=== PATIENT | male | born 1965 | race Caucasian/White ===

== ENCOUNTER → 2016-07-20 | Outpatient (CLI) | payer OTHER ==
[~2016-07-20] MED LIST: ALBU1.25 IH; DIAZ-345 PO; NAPR-243 PO; TRM50T PO
--- NOTE | 2016-07-20 12:44 | Diagnostic Imaging Report ---
Left shoulder at 10:29 a.m. INDICATION: Injury. Three views were obtained. FINDINGS: There is a broad lucency extending through the superior half of the body of the scapula. This finding may have been present on the prior chest exams of 08/09/2014 and 08/23/2011. Consequently, I feel it is unlikely that this is related to an acute scapular fracture. If further imaging is desired, however, then CT would be recommended. No other fracture or acute bony abnormality is noted. There is mild degenerative disease involving the glenohumeral joint and moderate degenerative disease of the acromioclavicular joint. The soft tissues are unremarkable. IMPRESSION: 1. The lucency extending through the superior half of the scapula may be a sequela of prior trauma as opposed to an acute injury. Recommendations as above. 2. There is no acute bony abnormality noted otherwise. 3. These results were discussed with Olivia Fierro APRN. Dictated by: Dictated on workstation # [id number]
--- NOTE | 2016-07-20 13:40 | Diagnostic Imaging Report ---
Left ribs. INDICATION: Injury. FINDINGS: Three views were obtained. There is no evidence for a displaced rib fracture. There is no sign of an injury to the underlying left lung either. Specifically, there is no pneumothorax. IMPRESSION: 1. There is no evidence for an acute bony abnormality. 2. These results were discussed with Olivia Fierro APRN. Dictated by: Dictated on workstation # [id number]
== END ==
LOC: RAD 09:53
PROVIDERS: ATTEND Nurse Practitioner Family
DX: M25.512 Pain in left shoulder (principal)
CPT/HCPCS: 71100; 73030

== ENCOUNTER 2016-09-11 12:25 | Emergency (ER) | payer OTHER ==
[~2016-09-11] VITALS: Ht 177.8 cm; Wt 127.9 kg
[~2016-09-11 12:25] MED LIST changes: -ALBU1.25 IH
--- OUTSIDE RECORDS SUMMARY | 2016-09-11 12:32 | XMS REPORT | Continuity of Care Document ---
Author Author [facility] Organization [facility] Address Unknown Phone Unavailable Allergies Active Description Code Type Severity Reaction Onset Reported/Identified Relationship to Patient Clinical Status Yes aspirin [id number] Drug Allergy Unknown N/A 08/23/2011 Yes Penicillins [id number] Drug Allergy Unknown N/A 08/23/2011 Medications Problems Date Dx Coded Attending Type Code Diagnosis Diagnosed By 03/07/2009 Ot 724.2 03/07/2009 Ot 724.4 03/07/2009 Ot V57.1 08/23/2011 Ot 845.00 08/23/2011 Ot 922.1 08/23/2011 Ot 924.10 08/23/2011 Ot 959.11 08/23/2011 Ot E000.8 08/23/2011 Ot E849.8 08/23/2011 Ot E928.9 12/10/2011 Ot 729.5 12/10/2011 Ot V57.1 08/12/2014 Ot 724.2 08/12/2014 Ot 722.52 08/12/2014 Ot 729.5 08/12/2014 STEFFI SKINNER DO Ot 278.00 08/12/2014 STEFFI SKINNER DO Ot 493.90 08/12/2014 STEFFI SKINNRE DO Ot 786.09 08/12/2014 STEFFI SKINNER DO Ot 278.00 08/12/2014 STEFFI SKINNER DO Ot 493.90 08/12/2014 STEFFI SKINNER DO Ot 786.09 08/23/2014 STEFFI SKINNER DO Ot 278.00 08/23/2014 STEFFI SKINNER DO Ot 493.90 08/23/2014 STEFFI SKINNER DO Ot 786.09 11/06/2014 STEFFI SKINNER DO Ot 786.09 12/30/2015 STEFFI SKINNER DO Ot 278.00 OBESITY, NOS 12/30/2015 STEFFI SKINNER DO Ot 493.90 ASTHMA, UNSPECIFIED 12/30/2015 STEFFI SKINNER DO Ot 786.09 RESPIRATORY ABNORM NEC 02/13/2016 STEFFI SKINNER DO Ot 278.00 OBESITY, NOS 02/13/2016 STEFFI SKINNER DO Ot 493.90 ASTHMA, UNSPECIFIED 02/13/2016 STEFFI SKINNER DO Ot 786.09 RESPIRATORY ABNORM NEC 04/26/2016 PAVITHRA UNDERWOOD MD Ot M25.561 PAIN IN RIGHT KNEE 04/26/2016 PAVITHRA UNDERWOOD MD Ot M54.5 LOW BACK PAIN 06/30/2016 PAVITHRA UNDERWOOD MD Ot M25.561 PAIN IN RIGHT KNEE 06/30/2016 PAVITHRA UNDERWOOD MD Ot M54.5 LOW BACK PAIN 07/20/2016 STEFFI SKINNER DO Ot 278.00 OBESITY, NOS 07/20/2016 STEFFI SKINNER DO Ot 493.90 ASTHMA, UNSPECIFIED 07/20/2016 STEFFI SKINNER DO Ot 786.09 RESPIRATORY ABNORM NEC 07/20/2016 PAVITHRA UNDERWOOD MD Ot M25.561 PAIN IN RIGHT KNEE 07/20/2016 PAVITHRA UNDERWOOD MD Ot M54.5 LOW BACK PAIN 07/21/2016 BRENDA CARY APRN Ot M25.512 PAIN IN LEFT SHOULDER 07/26/2016 BRENDA CARY APRN Ot M25.512 PAIN IN LEFT SHOULDER 09/01/2016 BRENDA CARY APRN Ot M25.512 PAIN IN LEFT SHOULDER Procedures Results Encounters ACCT No. Visit Date/Time Discharge Status Pt. Type Provider Facility Loc./Unit Complaint [id number] 10/29/2014 15:27:00 2014 23:59:59 CLS Outpatient STEFFI SKINNER DO [facility] SLEEP [id number] 08/09/2014 14:54:00 2014 23:59:59 CLS Outpatient STEFFI SKINNER DO [facility] RT ASTHMA,DYSPNEA [id number] 07/20/2016 09:53:00 ACT Outpatient BRENDA CARY APRN [facility] RAD L SCAPULA PAIN,PREVC SCAPULA FRACTURE [id number] 04/24/2016 12:25:00 ACT Outpatient YASMINE MONREAL, PAVITHRA Wong [facility] NINO R KNEE PAIN,LBP [id number] 12/10/2011 15:37:00 Document Registration [id number] 08/23/2011 11:39:00 Document Registration [id number] 12/23/2009 16:33:00 Document Registration [id number] 03/26/2009 08:39:00 Document Registration [id number] 03/17/2009 08:09:00 Document Registration [id number] 02/17/2009 08:49:00 Document Registration
--- NOTE | 2016-09-11 13:02 | ED Lower Extremity ---
General Chief Complaint: Lower Extremity Stated Complaint: R LEG PAIN, SWELLING Source: patient Exam Limitations: no limitations History of Present Illness Time seen by provider: 13:00 Initial Comments To ER with right knee pain and swelling. This began about 5 weeks ago when he fell on it. He followed up with Dr. Davis who put him on a Medrol Dosepak and meloxicam (finished medrol dosepak 2 weeks ago). This reduced the swelling. About a week ago the swelling returned to the knee. He has pain and tenderness down the lower extremity to the ankle. He denies fevers or chills. He is ambulatory Onset: just prior to arrival Severity: moderate Pain/Injury Location: right knee Method of Injury: fell Modifying Factors: Worse With Movement Allergies and Home Medications Allergies Coded Allergies: Penicillins (Verified Allergy, Unknown, 09/11/16) aspirin (Verified Allergy, Unknown, 09/11/16) hydrocodone (Verified Allergy, Unknown, 09/11/16) ketorolac (Verified Allergy, Unknown, 09/11/16) meperidine (Verified Allergy, Unknown, 09/11/16) Home Medications Albuterol Sulfate 1.25 Mg/3 Ml Vial.neb 1.25 MG IH (Reported) Constitutional: see HPI EENTM: see HPI Respiratory: no symptoms reported Cardiovascular: no symptoms reported Genitourinary: no symptoms reported Musculoskeletal: see HPI joint pain joint swelling Skin: no symptoms reported Psychiatric/Neurological: No Symptoms Reported Past Vqjbhhr-Qbnqgt-Fehnby Hx Patient Social History Alcohol Use: Regular Use Recreational Drug Use: No Smoking Status: Never a Smoker 2nd Hand Smoke Exposure: No Recent Foreign Travel: No Contact w/Someone Who Travel: No Recent Hopitalizations: No Surgeries HX Surgeries: Yes (r/l knee, back) Surgeries: Adenoidectomy, Orthopedic, Tonsillectomy Respiratory Hx Respiratory Disorders: Yes Respiratory Disorders: Asthma Cardiovascular Hx Cardiac Disorders: No Neurological Hx Neurological Disorders: No Reproductive System Hx Reproductive Disorders: No Genitourinary Hx Genitourinary Disorders: No Gastrointestinal Hx Gastrointestinal Disorders: No Musculoskeletal Hx Musculoskeletal Disorders: Yes Musculoskeletal Disorders: Arthritis Endocrine Hx Endocrine Disorders: No HEENT HX ENT Disorders: No Cancer Hx Cancer: No Psychosocial Hx Psychiatric Problems: No Integumentary HX Skin/Integumentary Disorder: No Blood Transfusions Hx Blood Disorders: No Physical Exam Vital Signs Vital Sign - Last 12Hours 09/11/16 12:53 Temp 98.0 Pulse 63 Resp 18 B/P 149/107 Pulse Ox 98 O2 Delivery Room Air Capillary Refill : General Appearance: WD/WN no apparent distress HEENT: PERRL/EOMI normal ENT inspection Neck: non-tender full range of motion Respiratory: no respiratory distress no accessory muscle use Gastrointestinal: non tender soft Hips: bilateral hip non-tender, bilateral hip normal inspection, bilateral hip normal range of motion Legs: bilateral leg non-tender, bilateral leg normal inspection, bilateral leg normal range of motion Knees: right knee pain, right knee soft tissue tenderness, right knee swelling Ankles: bilateral ankle non-tender, bilateral ankle normal inspection, bilateral ankle normal range of motion Feet: bilateral foot non-tender, bilateral foot normal inspection, bilateral foot normal range of motion Neurologic/Psychiatric: alert normal mood/affect oriented x 3 Skin: normal color warm/dry Comments I'm not able to appreciate any swelling of the lower extremity except for directly around the knee. Progress/Results/Core Measures Results/Orders My Orders Orders-FOZIA PENNY APRN Us Venous Lower Ext Rt (09/11/16 12:59) Knee, Right, 3 Views (09/11/16 12:59) Vital Signs/I&O Vital Sign - Last 12Hours 09/11/16 12:53 Temp 98.0 Pulse 63 Resp 18 B/P 149/107 Pulse Ox 98 O2 Delivery Room Air Diagnostic Imaging Diagonstic Imaging: Xray Comments NAME: DISHA CORREA [facility] REC#: [id number] PT STATUS: REG ER : 1965 PHYSICIAN: FOZIA PENNY APRN ADMIT DATE: 09/11/16/ER Draft Date of Exam:09/11/16 KNEE, RIGHT, 3 VIEWS INDICATION: Right knee pain. COMPARISON: None. FINDINGS: Three views of the right knee demonstrate moderate degenerative joint disease most pronounced involving the medial compartment and patellofemoral joint. There is a small suprapatellar joint effusion. There is no osseous lesion, fracture or dislocation. IMPRESSION: Small joint effusion with underlying degenerative joint disease. Dictated on workstation # [id number] Dict: 09/11/16 1318 Trans: 09/11/16 1321 [facility] [id number] Interpreted by: MASSIMO CHRISTOPHER Electronically signed by: NAME: DISHA CORREA [facility] REC#: [id number] PT STATUS: REG ER : 1965 PHYSICIAN: FOZIA PENNY APRN ADMIT DATE: 09/11/16/ER Draft Date of Exam:09/11/16 US VENOUS LOWER EXT RT PROCEDURE: US right lower extremity venous. TECHNIQUE: Multiple real-time grayscale images were obtained over the right lower extremity in various projections. Additional duplex Doppler and color Doppler images were also obtained. INDICATION: Leg pain and swelling. There are no prior studies available for comparison. FINDINGS: The previous left lower extremity venous Doppler exam of 12/23/09 fail to show any sign of thrombosis of the left lower extremity. There is generally good blood flow and compressibility at all levels of the deep venous system. There is no sign of a deep venous thrombosis. IMPRESSION: There is no evidence for deep venous stenosis of the right lower extremity. Dictated on workstation # [id number] Dict: 09/11/16 1407 Trans: 09/11/16 1410 [id number] Interpreted by: GALE NAVAS MD Electronically signed by: Departure Impression Impression: Primary Impression: Arthritis Additional Impression: Joint effusion Disposition: 01 HOME, SELF-CARE Condition: Stable Departure-Patient Inst. Decision time for Depature: 14:13 Referrals: PAVITHRA UNDERWOOD MD (PCP/Family) Primary Care Physician Patient Instructions: Arthritis and Exercise, Osteoarthritis (DC) Add. Discharge Instructions: 1. Follow-up with Dr. Underwood this week 3. Discuss with Dr. Underwood an MRI for further evaluation 4. Return to ER for any fevers, redness or other concerns All discharge instructions reviewed with patient and/or family. Voiced understanding. Copy Copies To 1: PAVITHRA UNDERWOOD MD, PETER J APRN Sep 11, 2016 13:02
[2016-09-11] MEDS ORDERED: ALBU1.25 IH (13:12)
--- NOTE | 2016-09-11 13:22 | Diagnostic Imaging Report ---
INDICATION: Right knee pain. COMPARISON: None. FINDINGS: Three views of the right knee demonstrate moderate degenerative joint disease most pronounced involving the medial compartment and patellofemoral joint. There is a small suprapatellar joint effusion. There is no osseous lesion, fracture or dislocation. IMPRESSION: Small joint effusion with underlying degenerative joint disease. Dictated by: Dictated on workstation # [id number]
--- NOTE | 2016-09-11 14:11 | Diagnostic Imaging Report ---
PROCEDURE: US right lower extremity venous. TECHNIQUE: Multiple real-time grayscale images were obtained over the right lower extremity in various projections. Additional duplex Doppler and color Doppler images were also obtained. INDICATION: Leg pain and swelling. There are no prior studies available for comparison. FINDINGS: The previous left lower extremity venous Doppler exam of 12/23/09 fail to show any sign of thrombosis of the left lower extremity. There is generally good blood flow and compressibility at all levels of the deep venous system. There is no sign of a deep venous thrombosis. IMPRESSION: There is no evidence for deep venous stenosis of the right lower extremity. Dictated by: Dictated on workstation # [id number]
[2016-09-11 14:32] VITALS: BP 140/102
== END 2016-09-11 14:32 | disposition home or self-care (01) ==
LOC: EDUNIT# 12:25 → ER 12:28
DX: M25.461 Effusion, right knee (principal); M17.11 Unilateral primary osteoarthritis, right knee
CPT/HCPCS: 73562; 99283

== ENCOUNTER → 2017-01-04 | Outpatient (CLI) | payer OTHER ==
[~2017-01-04] MED LIST changes: +ALBU1.25 IH
== END ==
LOC: RAD 09:21
PROVIDERS: ATTEND Orthopaedic Surgery
DX: M54.5 Low back pain (principal)

== ENCOUNTER 2017-06-17 05:34 | Outpatient (CLI) | payer OTHER ==
[~2017-06-17] VITALS: Ht 177.8 cm; Wt 152.0 kg
[2017-06-17] MEDS ORDERED: DIAZ5TAB3 PO (11:26)
[2017-06-17] MEDS ORDERED: RT-ALBUINH IH (11:26)
[2017-06-17] MEDS ORDERED: LISI-596 PO (11:26)
== END 2017-06-17 12:58 ==
LOC: PREOP 05:34
PROVIDERS: ATTEND Surgery
DX: Z01.818 Encounter for other preprocedural examination (principal); Z12.11 Encounter for screening for malignant neoplasm of colon

== ENCOUNTER 2017-06-24 07:00 | Day surgery (SDC) | payer OTHER ==
[~2017-06-24] VITALS: Ht 177.8 cm; Wt 152.0 kg
[~2017-06-24 07:00] MED LIST changes: +DIAZ5TAB3 PO; +LISI-596 PO; +RT-ALBUINH IH
--- OUTSIDE RECORDS SUMMARY | 2017-06-24 07:03 | XMS REPORT | Continuity of Care Document ---
Author Author [facility] Organization [facility] Address Unknown Phone Unavailable Allergies Active Description Code Type Severity Reaction Onset Reported/Identified Relationship to Patient Clinical Status Yes aspirin [id number] Drug Allergy Unknown N/A 09/11/2016 Yes hydrocodone [id number] Drug Allergy Unknown N/A 09/11/2016 Yes ketorolac [id number] Drug Allergy Unknown N/A 09/11/2016 Yes meperidine [id number] Drug Allergy Unknown N/A 09/11/2016 Yes Penicillins [id number] Drug Allergy Unknown N/A 09/11/2016 Medications There is no data. Problems Date Dx Coded Attending Type Code [...] 493.90 08/12/2014 STEFFI SKINNER DO Ot 786.09 08/12/2014 STEFFI SKINNER DO [...] DO Ot 786.09 RESPIRATORY ABNORM NEC 04/26/2016 YASMINE MONREAL, PAVITHRA Wong Ot M25.561 PAIN IN RIGHT KNEE 04/26/2016 YASMINE MONREAL, PAVITHRA Wong Ot M54.5 LOW BACK PAIN 06/30/2016 PAVITHRA [...] M54.5 LOW BACK PAIN 07/21/2016 BRENDA CARY PROOF CLERK Ot M25.512 PAIN IN LEFT SHOULDER 07/26/2016 BRENDA CARY PROOF CLERK Ot M25.512 PAIN IN LEFT SHOULDER 09/01/2016 BRENDA CARY PROOF CLERK Ot M25.512 PAIN IN LEFT SHOULDER 09/11/2016 FOZIA PENNY APRN Ot M17.11 UNILATERAL PRIMARY OSTEOARTHRITIS, RIGHT 09/11/2016 FOZIA PENNY APRN Ot M25.461 EFFUSION, RIGHT KNEE 09/11/2016 FOZIA PENNY APRN Ot M25.561 PAIN IN RIGHT KNEE 09/14/2016 FOZIA PENNY APRN Ot M17.11 UNILATERAL PRIMARY OSTEOARTHRITIS, RIGHT 09/14/2016 FOZIA PENNY APRN Ot M25.461 EFFUSION, RIGHT KNEE 09/14/2016 FOZIA PENNY APRN Ot M25.561 PAIN IN RIGHT KNEE 11/12/2016 BRENDA CARY APRN Ot M25.512 PAIN IN LEFT SHOULDER 11/15/2016 PAVITHRA UNDERWOOD MD Ot M25.561 PAIN IN RIGHT KNEE 11/15/2016 PAVITHRA UNDREWOOD MD Ot M54.5 LOW BACK PAIN 11/15/2016 BRENDA CARY APRN Ot M25.512 PAIN IN LEFT SHOULDER 12/29/2016 PAVITHRA UNDERWOOD MD Ot M25.561 PAIN IN RIGHT KNEE 12/29/2016 PAVITHRA UNDERWOOD MD Ot M54.5 LOW BACK PAIN 12/29/2016 BRENDA CARY APRN Ot M25.512 PAIN IN LEFT SHOULDER 12/31/2016 PAVITHRA UNDERWOOD MD Ot M25.561 PAIN IN RIGHT KNEE 12/31/2016 PAVITHRA UNDERWOOD MD Ot M54.5 LOW BACK PAIN 12/31/2016 BRENDA CARY APRN Ot M25.512 PAIN IN LEFT SHOULDER 01/06/2017 NICOLAS MURRY DO Ot M54.5 LOW BACK PAIN 01/06/2017 STEFFI SKINNER DO Ot 278.00 OBESITY, NOS 01/06/2017 STEFFI SKINNER DO Ot 493.90 ASTHMA, UNSPECIFIED 01/06/2017 STEFFI SKINNER DO Ot 786.09 RESPIRATORY ABNORM NEC 01/06/2017 PAVITHRA UNDERWOOD MD Ot M25.561 PAIN IN RIGHT KNEE 01/06/2017 PAVITHRA UNDERWOOD MD Ot M54.5 LOW BACK PAIN 01/06/2017 BRENDA CARY APRN Ot M25.512 PAIN IN LEFT SHOULDER 01/06/2017 NICOLAS MURRY DO Ot M54.5 LOW BACK PAIN Procedures There is no data. Results There is no data. Encounters ACCT No. Visit Date/Time Discharge Status Pt. Type Provider Facility Loc./Unit Complaint [id number] 01/04/2017 09:21:00 01/04/2017 23:59:59 CLS Outpatient NICOLAS MURRY DO [facility] RAD BACK PAIN [id number] 09/11/2016 12:28:00 09/11/2016 14:32:00 DIS Emergency FZOIA PENNY J PROOF CLERK [facility] ER R LEG PAIN, SWELLING [id number] 07/20/2016 09:53:00 07/20/2016 23:59:59 CLS Outpatient BRENDA CARY PROOF CLERK [facility] RAD L SCAPULA PAIN,PREVC SCAPULA FRACTURE [id number] 04/24/2016 12:25:00 04/24/2016 23:59:59 CLS Outpatient PAVITHRA UNDERWOOD MD [facility] RAD R KNEE PAIN,LBP [id number] 10/29/2014 15:27:00 10/29/2014 23:59:59 CLS Outpatient STEFFI SKINNER DO [facility] SLEEP [id number] 08/09/2014 14:54:00 08/09/2014 23:59:59 CLS Outpatient STEFFI SKINNER DO [facility] RT ASTHMA,DYSPNEA [id number] 06/24/2017 14:00:00 PEN Preadmit FABRIZIO CABRERA DO [facility] ENDO SCREENING [id number] 12/10/2011 15:37:00 Document Registration [id number] 08/23/2011 11:39:00 Document Registration [id number] 12/23/2009 16:33:00 Document Registration [id number] 03/26/2009 08:39:00 Document Registration [id number] 03/17/2009 08:09:00 Document Registration [id number] 02/17/2009 08:49:00 Document Registration
[2017-06-24] MEDS ORDERED: LACTATED RINGERS 1,000 ML IV ONE (07:07)
[2017-06-24] MEDS ORDERED: LACTATED RINGERS 1,000 ML IV STA (07:23)
[2017-06-24] MEDS ORDERED: FAMOTIDINE 20MG/2ML IV (PEPCID) ONE (07:24)
[2017-06-24] MEDS ORDERED: MIDAZOLAM 5 MG/5 ML (VERSED) VIAL ONE (07:25)
[2017-06-24] MEDS ORDERED: PROPOFOL INJECTION 50 ML IV ONE (07:25)
[2017-06-24 07:36] VITALS: BP 131/72
[2017-06-24] MEDS ORDERED: LIDOCAINE PF 1% 5 ML (XYLOCAINE) AMP ONE (07:41)
--- NOTE | 2017-06-24 08:45 | Progress Note-Post Operative ---
Post-Operative Progess Note Surgeon (s)/Pediatric Geneticist (s) Surgeon FABRIZIO CABRERA DO Pediatric Geneticist: na Pre-Operative Diagnosis screening colonoscopy Post-Operative Diagnosis descending colon polyp Procedure & Operative Findings Date of Procedure 06/24/17 Procedure Performed/Findings colonoscopy c hot bx polypectomy Anesthesia Type per armature winder automotive Estimated Blood Loss Estimated blood loss (mL): none Specimens/Packing Specimens Removed descending colon polyp FABRIZIO CABRERA DO Jun 24, 2017 08:45
--- NOTE | 2017-06-24 08:50 | Discharge Inst-Simple/Standard ---
Discharge Inst-Standard Patient Instructions/Follow Up Plan of Care/Instructions/FU: Repeat colonoscopy in 5 years any problems before then be seen at that time. Call the office in 1 week to discuss pathology results. Activity as Tolerated: Yes Discharge Diet: Regular Diet FABRIZIO CABRERA DO Jun 24, 2017 08:50
[2017-06-24 08:55] VITALS: BP 123/84
[2017-06-24 09:20] VITALS: BP 124/80
[2017-06-24 09:24] VITALS: BP 124/80
--- NOTE | 2017-06-24 18:02 | OPERATIVE REPORT ---
DATE OF SERVICE: 06/24/2017 PREOPERATIVE DIAGNOSIS: Screening colonoscopy. POSTOPERATIVE DIAGNOSIS: Descending colon polyp. PROCEDURE: Colonoscopy with hot biopsy polypectomy. SURGEON: Fabrizio Christianson DO. ANESTHESIA: Per CIVIL ENGINEER HELPER. ESTIMATED BLOOD LOSS: None. COMPLICATIONS: None. INDICATIONS: The patient is a 52-year-old male with need for screening colonoscopy. He understands risks and benefits of procedure and wished to proceed with procedure. Consent was signed in the chart. DESCRIPTION OF PROCEDURE: The patient was taken to the endoscopy suite, placed in left lateral recumbent position. Timeout was performed. Digital rectal exam was performed. There were no palpable polyps, masses or ulcerations. Scope was inserted in the rectum and advanced all the way to the cecum with minimal difficulty. Prep was adequate with irrigation and suction. There were no polyps, masses or ulcerations within the cecum. There were no polyps, masses or ulcerations in the ascending and transverse colon. Within the descending colon, a small polyp was present, which hot biopsy polypectomy was performed. Scope was continued slowly retracted back into the sigmoid colon and into the rectum where it was also retroflexed noting no other pathology. Scope was returned to its normal position, slowly withdrawn until completely removed. The patient tolerated procedure well without any complications. He was taken to the recovery room in stable condition. RECOMMENDATIONS: The patient to follow up on pathology. He will need a repeat colonoscopy in 5 years to reevaluate. If he has any problems prior to that, he should be reevaluated at that time. Job ID: [id number] DocumentID: [id number] Dictated Date: 06/24/2017 08:57:33 Grocery Buyer Date: 06/24/2017 18:01:33 Dictated By: FABRIZIO CHRISTIANSON DO
== END 2017-06-24 09:25 | disposition home or self-care (01) ==
LOC: ENDO 07:00
PROVIDERS: ATTEND Surgery
DX: Z12.11 Encounter for screening for malignant neoplasm of colon (principal); D12.4 Benign neoplasm of descending colon; I10 Essential (primary) hypertension; J45.909 Unspecified asthma, uncomplicated; M19.91 Primary osteoarthritis, unspecified site; E66.9 Obesity, unspecified; Z68.41 Body mass index [BMI] 40.0-44.9, adult; Z79.899 Other long term (current) drug therapy

== ENCOUNTER → 2018-10-30 | Outpatient (CLI) | payer OTHER | LOC: ORTHO 08:43 | PROVIDERS: ATTEND Orthopaedic Surgery | DX: M17.0 Bilateral primary osteoarthritis of knee (principal); J45.909 Unspecified asthma, uncomplicated; E66.9 Obesity, unspecified; Z68.42 Body mass index [BMI] 45.0-49.9, adult; Z79.899 Other long term (current) drug therapy | CPT/HCPCS: 99203 ==

== ENCOUNTER → 2019-01-31 | Outpatient (CLI) | payer OTHER | LOC: ORTHO 09:05 | PROVIDERS: ATTEND Orthopaedic Surgery | DX: M17.0 Bilateral primary osteoarthritis of knee (principal); J45.909 Unspecified asthma, uncomplicated; E66.9 Obesity, unspecified; Z68.42 Body mass index [BMI] 45.0-49.9, adult; Z79.899 Other long term (current) drug therapy ==

== ENCOUNTER → 2019-05-03 | Outpatient (CLI) | payer OTHER | LOC: ORTHO 08:42 | PROVIDERS: ATTEND Orthopaedic Surgery | DX: M17.11 Unilateral primary osteoarthritis, right knee (principal); Z79.51 Long term (current) use of inhaled steroids ==

== ENCOUNTER → 2019-06-06 | Outpatient (CLI) | payer OTHER ==
[~2019-06-06] VITALS: Ht 178 cm; Wt 145.0 kg
[~2019-06-06] MED LIST changes: +CATHETER FLUSH 10 ML SYR IV PRN; +REGADENOSON 0.4 MG/5 ML SYR (LEXISCAN) IV ONE
[2019-06-06 09:36] VITALS: BP 131/85
--- NOTE | 2019-06-06 23:13 | STRESS TEST ---
DATE OF SERVICE: 06/06/2019 LEXISCAN MYOVIEW STRESS TEST REPORT REFERRING PHYSICIAN: Laurie Bangura MD Baseline heart rate is 68, baseline blood pressure 143/85. Baseline EKG is sinus rhythm with no ischemic changes. In summary, the patient was injected with 10.18 mCi of technetium-99 Myoview and the resting images were obtained. Then, the patient received 0.4 mg of Lexiscan followed by 29.9 mCi of technetium-99 Myoview. Throughout the test, there were no EKG changes. The resting and stress images were reviewed and compared in the short axis, horizontal long axis, and vertical long axis views. Review of the images showed good radiotracer uptake with no ischemia or infarction. SSS is 2, SDS 2, TID value 1.03. On the gated images, the left ventricle appeared to be normal size with normal contractility. Calculated ejection fraction 53%. CONCLUSION: 1. The patient tolerated Lexiscan well. 2. Diaphragmatic attenuation with no significant ischemia or infarction on SPECT images. 3. Normal left ventricular size with normal contractility. Calculated ejection fraction 53%. Job ID: [id number] DocumentID: [id number] Dictated Date: 06/06/2019 17:02:36 Director Of Global Marketing Date: 06/06/2019 23:12:22 Dictated By: EDIE MIRANDA MD
== END ==
LOC: CARD 07:19
PROVIDERS: ATTEND Internal Medicine Cardiovascular Disease
DX: J45.909 Unspecified asthma, uncomplicated (principal); E78.2 Mixed hyperlipidemia; I10 Essential (primary) hypertension
CPT/HCPCS: 78452; 93017

== ENCOUNTER → 2019-10-11 | Outpatient (CLI) | payer OTHER ==
[~2019-10-11] MED LIST changes: -CATHETER FLUSH 10 ML SYR IV PRN; -DIAZ5TAB3 PO; +DIAZ5TAB49 PO; -REGADENOSON 0.4 MG/5 ML SYR (LEXISCAN) IV ONE
== END ==
LOC: ORTHO 08:38
PROVIDERS: ATTEND Orthopaedic Surgery
DX: M17.0 Bilateral primary osteoarthritis of knee (principal); J45.909 Unspecified asthma, uncomplicated; E78.2 Mixed hyperlipidemia; R09.02 Hypoxemia; E66.9 Obesity, unspecified

== ENCOUNTER → 2019-11-27 | Outpatient (CLI) | payer OTHER | LOC: ORTHO 13:23 | PROVIDERS: ATTEND Orthopaedic Surgery | DX: M17.11 Unilateral primary osteoarthritis, right knee (principal) ==

== ENCOUNTER → 2020-01-14 | Outpatient (CLI) | payer OTHER | LOC: ORTHO 09:43 | PROVIDERS: ATTEND Orthopaedic Surgery | DX: M17.11 Unilateral primary osteoarthritis, right knee (principal) ==

== ENCOUNTER → 2020-04-21 | Outpatient (CLI) | payer OTHER | LOC: ORTHO 09:49 | PROVIDERS: ATTEND Orthopaedic Surgery | DX: M17.11 Unilateral primary osteoarthritis, right knee (principal) ==

== ENCOUNTER → 2020-07-28 | Outpatient (CLI) | payer OTHER | LOC: ORTHO 08:39 | PROVIDERS: ATTEND Orthopaedic Surgery | DX: M17.11 Unilateral primary osteoarthritis, right knee (principal); E78.2 Mixed hyperlipidemia; I10 Essential (primary) hypertension; J45.909 Unspecified asthma, uncomplicated ==

== ENCOUNTER → 2021-03-25 | Outpatient (CLI) | payer OTHER | LOC: ORTHO 08:48 | PROVIDERS: ATTEND Orthopaedic Surgery | DX: M17.12 Unilateral primary osteoarthritis, left knee (principal); I10 Essential (primary) hypertension; J45.909 Unspecified asthma, uncomplicated; E78.2 Mixed hyperlipidemia | CPT/HCPCS: 20610; G0463 ==

== ENCOUNTER 2021-12-23 05:59 | Outpatient (CLI) | payer OTHER ==
[~2021-12-23] VITALS: Ht 177.8 cm; Wt 153.3 kg
== END 2021-12-23 12:06 | disposition home or self-care (01) ==
LOC: PREOP 05:59
PROVIDERS: ATTEND Surgery
DX: Z01.818 Encounter for other preprocedural examination (principal)

== ENCOUNTER 2022-01-07 06:48 | Day surgery (SDC) | payer OTHER ==
[~2022-01-07] VITALS: Ht 177.8 cm; Wt 153.3 kg
[~2022-01-07 06:48] MED LIST changes: +ACET-2267 PO; +CETI10TA49 PO; +DIPH25CA79 PO; +DULA4.5P SQ; +FAMO20TA5 PO; +FLUT1DIS26 IH; +GABA-486 PO; +LISI10TA25 PO; +MELA1TAB15 PO; +METF-399 PO; +MONT10TA21 PO; +ROPI1TAB PO; +SERT100T PO
[2022-01-07] MEDS ORDERED: LACTATED RINGERS 1,000 ML IV STA (06:58)
[2022-01-07] MEDS ORDERED: HURRICAINE EXT TUBE (BENZOCAINE) XX PRN (07:00)
[2022-01-07 07:07] VITALS: BP 108/75
[2022-01-07] MEDS ORDERED: PROPOFOL INJECTION 50 ML IV ONE (07:49)
[2022-01-07] MEDS ORDERED: MIDAZOLAM 2 MG/2 ML (VERSED) VIAL ONE (07:49)
--- NOTE | 2022-01-07 08:11 | Progress Note-Pre Operative ---
Pre-Operative Progress Note H&P Reviewed The H&P was reviewed, patient examined and no changes noted. Date Seen by Provider: Jan 07, 2022 Time Seen by Provider: 08:10 Date H&P Reviewed: Jan 07, 2022 Time H&P Reviewed: 08:11 Pre-Operative Diagnosis: gerd hx polyps FABRIZIO CABRERA DO Jan 07, 2022 08:11
--- NOTE | 2022-01-07 08:44 | Progress Note-Post Operative ---
Post-Operative Progess Note Surgeon (s)/Technology Coordinator (s) Surgeon FABRIZIO CABRERA DO Technology Coordinator: na Pre-Operative Diagnosis gerd hx polyps Post-Operative Diagnosis slight gastritis, small hiatal hernia, normal colon Procedure & Operative Findings Date of Procedure 01/07/22 Procedure Performed/Findings egd c biopsies, colonoscopy Anesthesia Type per mda Estimated Blood Loss Estimated blood loss (mL): none Specimens/Packing Specimens Removed antrum, body, ge FABRIZIO CABRERA DO Jan 07, 2022 08:44
[2022-01-07] MEDS ORDERED: PANT40TA2 PO (08:46)
--- NOTE | 2022-01-07 08:47 | Discharge Inst-Simple/Standard ---
Discharge Inst-Standard Discharge Medications New, Converted or Re-Newed RX: Transmitted to Pharmacy Patient Instructions/Follow Up Plan of Care/Instructions/FU: 2 weeks Meghan Arrange sleep study. Activity as Tolerated: Yes Discharge Diet: Regular Diet FABRIZIO CABRERA DO Jan 07, 2022 08:47
[2022-01-07 08:51] VITALS: BP 125/63
[2022-01-07 09:05] VITALS: BP 137/71
[2022-01-07 09:36] VITALS: BP 135/69
--- NOTE | 2022-01-07 09:42 | Anesthesia-General Post-Op ---
MAC Patient Condition Mental Status/LOC: Same as Preop Cardiovascular: Satisfactory Nausea/Vomiting: Absent Respiratory: Satisfactory Pain: Controlled Complications: Absent Post Op Complications Complications None Follow Up Care/Instructions Patient Instructions None needed. Anesthesiology Discharge Order Discharge Order Patient is doing well, no complaints, stable vital signs, no apparent adverse anesthesia problems. No complications reported per nursing. CANDI FATIMA DO Jan 07, 2022 09:41
--- NOTE | 2022-01-07 15:13 | OPERATIVE REPORT ---
DATE OF SERVICE: 01/07/2022 PREOPERATIVE DIAGNOSES: Gastroesophageal reflux disease, history of polyps. POSTOPERATIVE DIAGNOSES: Small hiatal hernia, slight gastritis, normal colon. PROCEDURE: EGD with biopsies, colonoscopy. SURGEON: Fabrizio Christianson DO ANESTHESIA: Per MDA. ESTIMATED BLOOD LOSS: None. COMPLICATIONS: None. INDICATIONS: The patient is a 56-year-old male with history of colon polyps and GERD. He understands risks and benefits of procedure and wishes to proceed. Consent was signed in the chart. DESCRIPTION OF PROCEDURE: The patient was taken to the endoscopy suite, placed in left lateral recumbent position. Timeout was performed. Scope was inserted in mouth, down the esophagus, stomach and into the duodenum without difficulty. No polyps, masses or ulcerations within the duodenum. Scope was slowly retracted back into the stomach where it was further insufflated. Evidence of gastritis present. Biopsy of the antrum and body were obtained. Scope was retroflexed noting a small hiatal hernia, no other pathology. Scope was returned to its normal position, slowly withdrawn to distal esophagus. Biopsy of GE junction was obtained. No polyps, masses or ulcerations. Scope was slowly retracted back until completely removed. Digital rectal exam was performed. No palpable polyps, masses or ulcerations. Scope was inserted in the rectum and advanced all the way to cecum with minimal difficulty. Prep was adequate with irrigation and suction. Scope was slowly retracted back. No polyps, masses or ulcerations visualized within the cecum, ascending, transverse, descending and sigmoid colon. Once in the rectum, scope was retroflexed noting no other pathology. Scope was returned to its normal position, slowly withdrawn until completely removed. The patient tolerated the procedure well without any complications, taken to recovery room in stable condition. RECOMMENDATIONS: The patient will stop Pepcid and start Protonix 40 mg daily. Await biopsy results. The patient with history of colon polyps, would repeat colonoscopy in five years. Any issues before that be seen at that time. We will also recommended sleep study for further evaluation. CC: Dr. Bangura - requested, unable to deliver Job ID: [id number] DocumentID: [id number] Dictated Date: 01/07/2022 08:50:47 Campus Manager Date: 01/07/2022 15:13:18 Dictated By: FABRIZIO CHRISTIANSON DO
== END 2022-01-07 09:39 | disposition home or self-care (01) ==
LOC: ENDO 06:48
PROVIDERS: ATTEND Surgery
DX: Z12.11 Encounter for screening for malignant neoplasm of colon (principal); K44.9 Diaphragmatic hernia without obstruction or gangrene; K21.00 Gastro-esophageal reflux disease with esophagitis, without bleeding; K29.70 Gastritis, unspecified, without bleeding; E66.01 Morbid (severe) obesity due to excess calories; Z86.010 Personal history of colon polyps; Z88.0 Allergy status to penicillin; Z88.5 Allergy status to narcotic agent; Z88.8 Allergy status to other drugs, medicaments and biological substances; F17.220 Nicotine dependence, chewing tobacco, uncomplicated; Z79.899 Other long term (current) drug therapy; Z68.42 Body mass index [BMI] 45.0-49.9, adult; Z28.310 Unvaccinated for COVID-19
CPT/HCPCS: 88305

== ENCOUNTER 2022-01-27 07:58 | Outpatient (CLI) | payer OTHER ==
[~2022-01-27 07:58] MED LIST changes: +PANT40TA2 PO
== END 2022-01-27 08:25 ==
LOC: SLEEP 07:58
PROVIDERS: ATTEND Family Medicine
DX: G47.33 Obstructive sleep apnea (adult) (pediatric) (principal); G47.10 Hypersomnia, unspecified; G47.00 Insomnia, unspecified; I10 Essential (primary) hypertension
CPT/HCPCS: G0399

== ENCOUNTER → 2022-02-24 | Outpatient (CLI) | payer OTHER | LOC: ORTHO 09:30 | PROVIDERS: ATTEND Orthopaedic Surgery | DX: M17.0 Bilateral primary osteoarthritis of knee (principal); I10 Essential (primary) hypertension; E78.2 Mixed hyperlipidemia | CPT/HCPCS: 20610; G0463 ==

== ENCOUNTER → 2022-05-25 | Outpatient (CLI) | payer OTHER | LOC: ORTHO 15:02 | PROVIDERS: ATTEND Orthopaedic Surgery | DX: M17.11 Unilateral primary osteoarthritis, right knee (principal); J45.909 Unspecified asthma, uncomplicated; I10 Essential (primary) hypertension; E78.2 Mixed hyperlipidemia; E66.9 Obesity, unspecified | CPT/HCPCS: 20610 ==

== ENCOUNTER → 2022-10-07 | Outpatient (CLI) | payer OTHER ==
[~2022-10-07] MED LIST changes: +MONT-47 PO; -MONT10TA21 PO
== END ==
LOC: ORTHO 14:05
PROVIDERS: ATTEND Orthopaedic Surgery
DX: M17.0 Bilateral primary osteoarthritis of knee (principal)
CPT/HCPCS: 20610

== ENCOUNTER → 2022-12-02 | Outpatient (CLI) | payer OTHER | LOC: ORTHO 08:45 | PROVIDERS: ATTEND Orthopaedic Surgery | DX: S63.392A Traumatic rupture of other ligament of left wrist, initial encounter (principal); X58.XXXA Exposure to other specified factors, initial encounter | CPT/HCPCS: 99213 ==

== ENCOUNTER → 2023-03-16 | Outpatient (CLI) | payer OTHER ==
[~2023-03-16] MED LIST changes: -ROPI1TAB PO; +ROPI1TAB46 PO
== END ==
LOC: ORTHO 09:30
PROVIDERS: ATTEND Orthopaedic Surgery
DX: M17.11 Unilateral primary osteoarthritis, right knee (principal)
CPT/HCPCS: 20610

== ENCOUNTER → 2023-04-12 | Outpatient (CLI) | payer OTHER | LOC: ORTHO 09:13 | PROVIDERS: ATTEND Orthopaedic Surgery | DX: M17.12 Unilateral primary osteoarthritis, left knee (principal) | CPT/HCPCS: 20610 ==

== ENCOUNTER → 2023-04-21 | Outpatient (CLI) | payer OTHER ==
--- NOTE | 2023-04-21 17:20 | Diagnostic Imaging Report ---
EXAMINATION: Left knee radiographs, 3 views. COMPARISON: None. HISTORY: 57-year-old male, left knee pain. Hyperextension injury. FINDINGS: There is severe medial and patellofemoral compartment joint space loss. There is no large knee joint effusion. There are medial and prominent patellofemoral compartment osteophytes. There is no identified acute fracture. IMPRESSION: 1. Severe medial and patellofemoral compartment osteoarthritis of the left knee without knee joint effusion. 2. No identified acute fracture. Dictated by: Dictated on workstation # [id number]
== END ==
LOC: ORTHO 13:43
PROVIDERS: ATTEND Orthopaedic Surgery
DX: M17.12 Unilateral primary osteoarthritis, left knee (principal)
CPT/HCPCS: 73562; G0463; 99213

== ENCOUNTER → 2023-05-24 | Outpatient (CLI) | payer OTHER ==
--- NOTE | 2023-05-24 14:14 | Diagnostic Imaging Report ---
INDICATION: Left leg pain. Left leg venous Doppler study was performed in the routine fashion with color flow Doppler and waveform analysis. FINDINGS: The left common femoral vein, superficial femoral vein, popliteal vein and visualized portion of the posterior tibial vein show normal compressibility and venous flow patterns. There is normal augmentation. IMPRESSION: No evidence of deep vein thrombosis of the major veins of the left leg. Dictated by: Dictated on workstation # [id number]
== END ==
LOC: RAD 13:02
PROVIDERS: ATTEND Family Medicine
DX: M79.89 Other specified soft tissue disorders (principal)